=== PATIENT | female | born 1960 | race Two or more races ===

== ENCOUNTER 2023-02-05 16:02 | Emergency (ER) | payer OTHER ==
[~2023-02-05] VITALS: Ht 157.5 cm; Wt 50.8 kg
[2023-02-05 16:30] VITALS: BP 110/60; TEMP 98.7
[2023-02-05] MEDS ORDERED: ACETAMINOPHEN ES 500 MG TABLET PO ONE (17:00)
[2023-02-05] MEDS ORDERED: ACETAMINOPHEN ES 500 MG TABLET ONE (17:13)
[2023-02-05] MEDS ORDERED: ACET-2605 PO (17:42)
[2023-02-05] MEDS ORDERED: IBUP-1955 PO (17:42)
== END 2023-02-05 18:08 | disposition home or self-care (01) ==
LOC: ER 16:13
DX: M79.671 Pain in right foot (principal); M25.571 Pain in right ankle and joints of right foot; Z79.899 Other long term (current) drug therapy; W01.0XXA Fall on same level from slipping, tripping and stumbling without subsequent striking against object, initial encounter; Y93.89 Activity, other specified; Y92.89 Other specified places as the place of occurrence of the external cause; Y99.8 Other external cause status
CPT/HCPCS: 73610-TC; 73630-TC